=== PATIENT | male | born 1995 | race Hispanic/Latino ===

== ENCOUNTER 2017-03-26 13:56 | Emergency (ER) | payer OTHER ==
[~2017-03-26] VITALS: Ht 180.3 cm; Wt 83.5 kg
[2017-03-26 15:35] LABS: BILIRUBIN,URINE NEGATIVE (NEGATIVE); CLARITY,URINE CLEAR (CLEAR); COLOR,URINE YELLOW (YELLOW); KETONES,URINE NEGATIVE (NEGATIVE); LEUKOCYTE ESTERASE ,URINE NEGATIVE (NEGATIVE); NITRITE,URINE NEGATIVE (NEGATIVE); PROTEIN,URINE DIPSTICK NEGATIVE (NEGATIVE); URINE UROBILINOGEN 0.2 mg/dL (0.2 - 1)
[2017-03-26 16:03] LABS: EPITHELIAL CELLS,URINE RARE /LPF; MUCUS,URINE RARE (RARE)
[2017-03-26 18:08] VITALS: BP 132/82
== END 2017-03-26 18:20 | disposition home or self-care (01) ==
LOC: ER 13:56 → EDSEX 13:56 → EDBD 13:56 → ER 18:20
DX: R35.0 Frequency of micturition (principal); R30.0 Dysuria
CPT/HCPCS: 81001; 87086; 99283

== ENCOUNTER 2017-11-11 13:46 | Emergency (ER) | payer OTHER ==
[~2017-11-11] VITALS: Ht 180.3 cm; Wt 79.4 kg
[2017-11-11] MEDS ORDERED: SODIUM CHLORIDE 0.9% 1000ML 1,000 ML IV STA (13:52)
[2017-11-11] MEDS ORDERED: ONDANSETRON HCL INJ 2 MG/ML VIAL IV STA (13:52)
[2017-11-11] MEDS ORDERED: KETOROLAC TROMETHAMINE 30 MG/ML VIAL IV STA (13:52)
[2017-11-11 14:39] LABS: BASOPHILS % 0.3 % (0.0-1.0); EOSINOPHILS # (AUTO) 0.1 (0.0-0.4); EOSINOPHILS % 0.7 % (0.0-6.0); HEMATOCRIT 45.3 % (38.2-49.6); HEMOGLOBIN 16.2 g/dL (14.0-18.0); LYMPHOCYTES # (AUTO) 1.9 (1.0-3.2); LYMPHOCYTES % 19.1 % (18.0-39.1); MEAN CORPUSCULAR HGB CONC 35.8 g/dL (31-35); MEAN CORPUSCULAR VOLUME 86.8 fL (81-99); MONOCYTES # (AUTO) 0.5 (0.2-0.8); MONOCYTES % 5.3 % (4.4-11.3); NEUTROPHILS # (AUTO) 7.3 (2.1-6.9); NEUTROPHILS % 74.3 % (38.7-80.0); PLATELET COUNT 270 x10e3/uL (140-360); RED BLOOD COUNT 5.22 x10e6/uL (4.3-5.7); RED CELL DISTRIBUTION WIDTH 12.4 % (11.7-14.4)
[2017-11-11 14:41] LABS: CLARITY,URINE SL CLOUDY (CLEAR); COLOR,URINE YELLOW (YELLOW); LEUKOCYTE ESTERASE ,URINE NEGATIVE (NEGATIVE); NITRITE,URINE NEGATIVE (NEGATIVE); PROTEIN,URINE DIPSTICK NEGATIVE (NEGATIVE)
[2017-11-11 14:42] LABS: BILIRUBIN,URINE NEGATIVE (NEGATIVE); KETONES,URINE NEGATIVE (NEGATIVE); URINE UROBILINOGEN 0.2 mg/dL (0.2 - 1)
[2017-11-11 14:52] LABS: RBC,URINE 0-5 /HPF (0-5)
[2017-11-11 15:00] LABS: ALANINE AMINOTRANSFERASE 29 IU/L (0-55); ALBUMIN 4.4 g/dL (3.5-5.0); ALBUMIN/GLOBULIN RATIO 1.2 (0.8-2.0); ALKALINE PHOSPHATASE 134 IU/L (40-150); ANION GAP 15.7 mmol/L (8-16); BLOOD UREA NITROGEN 11 mg/dL (7-26); BUN/CREATININE RATIO 10 (6-25); CALCIUM 9.9 mg/dL (8.4-10.2); CARBON DIOXIDE 24 mmol/L (22-29); CHLORIDE 103 mmol/L (98-107); CREATININE, SERUM 1.09 mg/dL (0.72-1.25); EST GLOMERULAR FILTRATION RATE > 60 ML/MIN (60-); GLUCOSE 112 mg/dL (74-118); LIPASE 23 U/L (8-78); POTASSIUM 3.7 mmol/L (3.5-5.1); SODIUM 139 mmol/L (136-145)
--- NOTE | 2017-11-11 16:33 | Diagnostic Imaging Report ---
PROCEDURE: CT ABDOMEN AND PELVIS WITH CONTRAST TECHNIQUE: The abdomen and pelvis were scanned utilizing a multidetector helical scanner from the diaphragm to the lesser trochanter after the IV administration of 100 cc of Isovue 370 and the oral administration of 900 mL of Gastrografin/water. Coronal and sagittal multiplanar reformations were obtained. COMPARISON: None. INDICATIONS: abdominal pain, lower quad, rectal bleeding FINDINGS: LOWER THORAX: Normal. HEPATOBILIARY: No focal hepatic lesions. No biliary ductal dilatation. SPLEEN: No splenomegaly. PANCREAS: No focal masses or ductal dilatation. ADRENALS: No adrenal nodules. KIDNEYS/URETERS: No hydronephrosis, stones, or solid mass lesions. PELVIC ORGANS/BLADDER: Unremarkable. PERITONEUM / RETROPERITONEUM: No free air or fluid. LYMPH NODES: There is some prominence ileocecal lymph nodes in the right lower quadrant which measure up to 1.0 cm (series 2, image 42) . VESSELS: Unremarkable. GI TRACT: Unusual appearance of the right hemicolon suggests prior ileocecal resection. There is mild thickening of the neoterminal ileum with adjacent fat stranding and enlarged ileocecal lymph nodes. Otherwise no abnormal distention or wall thickening. No evidence of obstruction. The appendix is absent. BONES AND SOFT TISSUES: Unremarkable. IMPRESSION: The appearance of the right hemicolon suggests prior ileocecal resection. There is mild wall thickening of the neoterminal ileum with surrounding stranding and ileocolic lymphadenopathy. The findings suggest a nonspecific enteritis, perhaps inflammatory or infectious. Dictated by: Silvestre Mccord M.D. on 11/11/2017 at 16:39 Electronically approved by: Silvestre Mccord M.D. on 11/11/2017 at 16:39
[2017-11-11] MEDS ORDERED: FLAGYL500 MG PO (16:39)
[2017-11-11] MEDS ORDERED: CIPRO500 MG PO (16:39)
[2017-11-11 16:59] VITALS: BP 127/63
[2017-11-11] MEDS ORDERED: SODIUM CHLORIDE 0.9% 50ML 50 ML ONE (17:28)
[2017-11-11] MEDS ORDERED: IOPAMIDOL 370 MG/ML 200 ML INFUS..BTL INJ ONE (17:28)
== END 2017-11-11 17:06 | disposition home or self-care (01) ==
LOC: ER 13:46
DX: R10.84 Generalized abdominal pain (principal); R11.0 Nausea
CPT/HCPCS: 36415; 74177; 80053; 81001; 83690; 85025; 99284; J1885; J2405; J7030; Q9967

== ENCOUNTER 2018-04-07 20:28 | Emergency (ER) | payer OTHER ==
[~2018-04-07] VITALS: Ht 180.3 cm; Wt 79.4 kg
[~2018-04-07 20:28] MED LIST: CIPRO500 MG PO; FLAGYL500 MG PO
--- OUTSIDE RECORDS SUMMARY | 2018-04-07 20:31 | XMS REPORT ---
Author Author Admin, [place] Organization [facility] Address [address] [address] Phone Allergies, Adverse Reactions, Alerts Allergy Name Reaction Description Start Date Severity Status Provider No Known Allergies Jazmín Black CMA Conditions or Problems Problem Name Problem Code Onset Date Status Entry Date Provider Comment Standard Description Annotate Immunization update V15.9 Active Lisa Palencia MD Unspecified personal history presenting hazards to health Medication, terminal press operator use V58.6 Active Lisa Palencia MD Long-term (current) drug use Pre-Exposure Prophylaxis z72.52 V69.2 Active Lisa Palencia MD High-risk sexual behavior Sexual activity, high risk V69.2 Active Lisa Palencia MD High-risk sexual behavior Preventative health care V70.0 Active Dustin Verdin AUTOMOTIVE PRODUCT ENGINEER Routine general medical examination at a health care facility Medication List Medication Instructions Start Date Stop Date Generic Name NDC Status Provider Patient Instruction TRUVADA 200 MG-300 MG TABLET TAKE 1 TABLET BY MOUTH EVERY DAY EMTRICITABINE- TENOFOVIR DF [id number] Active Lisa Palencia MD Active Immunizations Vaccine Administration Date Value Standard Description hepatitis B vaccine #2 given given hepatitis B vaccine, unspecified formulation Human Papillomavirus vaccine (Gardasil) #2, (HPV #2) given human papilloma virus vaccine, quadrivalent Human Papillomavirus vaccine (Gardasil) #2, (HPV #2) Drug Name Gardasil 9 human papilloma virus vaccine, quadrivalent hepatitis B vaccine #1 given given hepatitis B vaccine, unspecified formulation Human Papilloma Virus Vaccine (Gardasil) (HPV 1) Administration Date given human papilloma virus vaccine, quadrivalent Vital Signs Date Name Value Unit Range Description height E&M 71 [in_us] Bdy height blood pressure, diastolic 76 mm[Hg] BP connolly blood pressure, systolic 144 mm[Hg] BP sys height E&M 71 [in_us] Bdy height temperature E&M 97.9 [degF] Body temperature weight E&M 173.40 [lb_av] Weight Measured blood pressure, diastolic 82 mm[Hg] BP connolly blood pressure, systolic 141 mm[Hg] BP sys height E&M 71 [in_us] Bdy height pulse rate E&M 64 /min Heart rate temperature E&M 97.8 [degF] Body temperature weight E&M 180.38 [lb_av] Weight Measured Diagnostic Results Date Name Value Unit Range Description Lab Report: HBcAb+HBsAb+HBsAg+HCVAb, CBC With Differential/Platelet, Com ... - Chemistry hepatitis B surface antigen Negative Negative Lab Report: COMPREHENSIVE METABOLIC PANEL, HIV 1/2 ANTIGEN/ANTIBODY,FOUR ... - Chemistry chloride, serum 104 mmol/L 98-110 Internal Other: Patient navigation 2 Prep start/ neg HIV rapid test - Chemistry HIV rapid test results negative Lab Report: HBcAb+HBsAb+HBsAg+HCVAb, CBC With Differential/Platelet, Com ... - Microbiology hepatitis A antibody, total Positive Negative Lab Report: COMPREHENSIVE METABOLIC PANEL, HIV 1/2 ANTIGEN/ANTIBODY,FOUR ... - Chemistry urea nitrogen, blood 17 mg/dL 7-25 Lab Report: HBcAb+HBsAb+HBsAg+HCVAb, CBC With Differential/Platelet, Com ... - Hematology mean corpuscular hemoglobin concentration, RBC 34.2 G/DL % 31.5-35.7 erythrocyte (RBC) count 5.01 X10E6/UL 10*6/mm3 4.14-5.80 Lab Report: HBcAb+HBsAb+HBsAg+HCVAb, CBC With Differential/Platelet, Com ... - Serology hepatitis C antibody, serum 0.1 0.0-0.9 Lab Report: HBcAb+HBsAb+HBsAg+HCVAb, CBC With Differential/Platelet, Com ... - Chemistry Absolute Neutrophils 7.8 X10E3/UL 10*3/uL 1.4-7.0 Lab Report: COMPREHENSIVE METABOLIC PANEL, HIV 1/2 ANTIGEN/ANTIBODY,FOUR ... - Chemistry urea nitrogen/creatinine ratio, serum NOT APPLICABLE (calc) 6-22 Lab Report: HBcAb+HBsAb+HBsAg+HCVAb, CBC With Differential/Platelet, Com ... - Hematology mean corpuscular volume, RBC 91 fL 79-97 monocytes as percent of blood leukocytes 5 % Not Estab. Lab Report: COMPREHENSIVE METABOLIC PANEL, HIV 1/2 ANTIGEN/ANTIBODY,FOUR ... - Chemistry albumin/globulin ratio, serum 2.0 (calc) 1.0-2.5 creatinine, serum 1.01 mg/dL 0.60-1.35 bilirubin, serum, total 0.5 mg/dL 0.2-1.2 Lab Report: HBcAb+HBsAb+HBsAg+HCVAb, CBC With Differential/Platelet, Com ... - Hematology Eosinophil Absolute Count 0.4 X10E3/UL 10*3/uL 0.0-0.4 Lab Report: CHLAMYDIA/N. GONORRHOEAE RNA, TMA, UROGENITAL - Lab chlamydia DNA probe NOT DETECTED NOT DETECTED Lab Report: COMPREHENSIVE METABOLIC PANEL, HIV 1/2 ANTIGEN/ANTIBODY,FOUR ... - Chemistry aspartate aminotransferase (SGOT), serum 36 U/L 10-40 Lab Report: HBcAb+HBsAb+HBsAg+HCVAb, CBC With Differential/Platelet, Com ... - Hematology red blood cell distribution width 13.6 % 12.3-15.4 Lab Report: COMPREHENSIVE METABOLIC PANEL, HIV 1/2 ANTIGEN/ANTIBODY,FOUR ... - Chemistry globulins, serum, total 2.2 G/DL (CALC) g/dL 1.9-3.7 Lab Report: HBcAb+HBsAb+HBsAg+HCVAb, CBC With Differential/Platelet, Com ... - Hematology leukocyte count, blood 10.9 X10E3/UL 10*3/mm3 3.4-10.8 Lab Report: COMPREHENSIVE METABOLIC PANEL, HIV 1/2 ANTIGEN/ANTIBODY,FOUR ... - Chemistry potassium, serum 4.4 mmol/L 3.5-5.3 albumin, serum 4.5 g/dL 3.6-5.1 Lab Report: Ct/GC MATT, Rectal, Ct/GC MATT, Pharyngeal - Microbiology Neisseria gonorrhoeae, throat culture Negative Negative Lab Report: HBcAb+HBsAb+HBsAg+HCVAb, CBC With Differential/Platelet, Com ... - Chemistry immature granulocytes, percentage of total cells, blood 1 % Not Estab. Lab Report: HBcAb+HBsAb+HBsAg+HCVAb, CBC With Differential/Platelet, Com ... - Hematology lymphocyte count, blood, automated 2.1 X10E3/UL 10*3/mm3 0.7-3.1 Lab Report: CHLAMYDIA/N. GONORRHOEAE RNA, TMA, UROGENITAL - Microbiology Neisseria gonorrhoeae DNA probe NOT DETECTED NOT DETECTED Lab Report: HBcAb+HBsAb+HBsAg+HCVAb, CBC With Differential/Platelet, Com ... - Hematology hematocrit, blood 45.6 % 37.5-51.0 Lab Report: COMPREHENSIVE METABOLIC PANEL, HIV 1/2 ANTIGEN/ANTIBODY,FOUR ... - Chemistry sodium, serum 141 mmol/L 135-146 Lab Report: HBcAb+HBsAb+HBsAg+HCVAb, CBC With Differential/Platelet, Com ... - Hematology neutrophils as percent of blood leukocytes 72 % Not Estab. basophils as percent of blood leukocytes 0 % Not Estab. Lab Report: HIV 1/2 ANTIGEN/ANTIBODY,FOURTH GENERATION W/RFL, RPR (DX) W ... - Serology rapid plasma reagin antibody, serum NON-REACTIVE NON-REACTIVE Lab Report: COMPREHENSIVE METABOLIC PANEL, HIV 1/2 ANTIGEN/ANTIBODY,FOUR ... - Chemistry carbon dioxide, venous blood 26 mmol/L 20-32 Lab Report: HBcAb+HBsAb+HBsAg+HCVAb, CBC With Differential/Platelet, Com ... - Serology hepatitis B core antibody, total Negative Negative Lab Report: COMPREHENSIVE METABOLIC PANEL, HIV 1/2 ANTIGEN/ANTIBODY,FOUR ... - Chemistry calcium, serum 9.4 mg/dL 8.6-10.3 alanine aminotransferase (SGPT), serum 27 U/L 9-46 Lab Report: HBcAb+HBsAb+HBsAg+HCVAb, CBC With Differential/Platelet, Com ... - Hematology mean corpuscular hemoglobin, RBC 31.1 pg 26.6-33.0 Lab Report: COMPREHENSIVE METABOLIC PANEL, HIV 1/2 ANTIGEN/ANTIBODY,FOUR ... - Chemistry protein, total, serum 6.7 g/dL 6.1-8.1 alkaline phosphatase, serum 108 U/L 40-115 Lab Report: HBcAb+HBsAb+HBsAg+HCVAb, CBC With Differential/Platelet, Com ... - Hematology hemoglobin, blood 15.6 g/dL 13.0-17.7 lymphocytes as percent of blood leukocytes 19 % Not Estab. Lab Report: COMPREHENSIVE METABOLIC PANEL, HIV 1/2 ANTIGEN/ANTIBODY,FOUR ... - Genetics/fertility eGFR if 122 mL/min/1.73m2 > OR=60 Lab Report: HBcAb+HBsAb+HBsAg+HCVAb, CBC With Differential/Platelet, Com ... - Hematology basophil count, absolute 0.0 x10E3/uL 0.0-0.2 Lab Report: Ct/GC MATT, Rectal, Ct/GC MATT, Pharyngeal - Basic GC Rectum Negative Negative Lab Report: HBcAb+HBsAb+HBsAg+HCVAb, CBC With Differential/Platelet, Com ... - Chemistry globulin, serum 2.2 1.5-4.5 Lab Report: COMPREHENSIVE METABOLIC PANEL, HIV 1/2 ANTIGEN/ANTIBODY,FOUR ... - Chemistry Estimated Glomerular Filtration Rate (calc) 105 mL/min/1.73m2 > OR=60 Lab Report: HBcAb+HBsAb+HBsAg+HCVAb, CBC With Differential/Platelet, Com ... - Serology hepatitis B surface antibody Non Reactive Lab Report: HBcAb+HBsAb+HBsAg+HCVAb, CBC With Differential/Platelet, Com ... - Hematology eosinophils as percent of blood leukocytes 3 % Not Estab. Lab Report: COMPREHENSIVE METABOLIC PANEL, HIV 1/2 ANTIGEN/ANTIBODY,FOUR ... - Chemistry blood glucose, random 86 mg/dL 65-99 Lab Report: HBcAb+HBsAb+HBsAg+HCVAb, CBC With Differential/Platelet, Com ... 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 Exp Problem - 18115 Lisa Palencia MD CPT-98164 [facility] 12:45:42 CDT Est Patient Detailed - 97689 Lisa Palencia MD CPT-10204 [facility] 10:48:26 CDT New Patient Detailed - 24154 Lisa Palencia MD CPT-32966 [facility] Procedures Code Procedure Name Date Entry Date Standard Description CPT-09952 Gardasil (HPV) 9 - valent 12:45:47 CDT CPT-83962 Hepatitis B - Adult 12:45:47 CDT CPT-FC001 Financial Counseling/Eligibility Assistance 10:28:02 CDT CPT-09503 Hepatitis B - Adult 10:48:31 CDT CPT-82327 Gardasil (HPV) 9 - valent 10:48:31 CDT CPT-HE001 Health Education/Supportive Counseling 11:32:24 CDT CPT-HE001 Health Education/Supportive Counseling 09:36:33 CDT
--- OUTSIDE RECORDS SUMMARY | 2018-04-07 20:31 | XMS REPORT ---
Author [facility] Address Unknown Phone Unavailable Care Team Providers Care Press Set Up Person Name Role Phone Anisha ANDERSON Unavailable Unavailable Problems This patient has no known problems. Allergies, Adverse Reactions, Alerts This patient has no known allergies or adverse reactions. Medications This patient has no known medications. Results Test Description Test Time Test Comments Text Results Atomic Results Result Comments CT ABDOMEN/PELVIS W 2017-11-11 16:39:00 [place] [address] Patient Name: IGOR RICO MR #: [id number] : 1995 Age/Sex: 22/M Req #: [id number] [facility] Physician: Ordered by: AGGIE ANDERSON MD Report #: [id number] Location: ER Room/Bed: Procedure: [id number] CT/CT ABDOMEN/PELVIS W Exam Date: 11/11/17 Exam Time: 1520 REPORT STATUS: Signed PROCEDURE: CT ABDOMEN AND PELVIS WITH CONTRAST TECHNIQUE: The abdomen and pelvis were scanned utilizing a multidetector helical scanner from the diaphragm to the lesser trochanter after the IV administration of 100 cc of Isovue 370 and the oral administration of 900 mL of Gastrografin/water. Coronal and sagittal multiplanar reformations were obtained. COMPARISON: None. INDICATIONS: abdominal pain, lower quad, rectal bleeding FINDINGS: LOWER THORAX: Normal. HEPATOBILIARY: No focal hepatic lesions. No biliary ductal dilatation. SPLEEN: No splenomegaly. PANCREAS: No focal masses or ductal dilatation. ADRENALS: No adrenal nodules. KIDNEYS/URETERS: No hydronephrosis, stones, or solid mass lesions. PELVIC ORGANS/BLADDER: Unremarkable. PERITONEUM / RETROPERI TONEUM: No free air or fluid. LYMPH NODES: There is some prominence ileocecal lymph nodes in the right lower quadrant which measure up to 1.0 cm (series 2, image 42) . VESSELS: Unremarkable. GI TRACT: Unusual appearance of the right hemicolon suggests prior ileocecal resection. There is mild thickening of the neoterminal ileum with adjacent fat stranding and enlarged ileocecal lymph nodes. Otherwise no abnormal distention or wall thickening. No evidence of obstruction. The appendix is absent. BONES AND SOFT TISSUES: Unremarkable. IMPRESSION: The appearance of the right hemicolon suggests prior ileocecal resection. There is mild wall thickening of the neoterminal ileum with surrounding stranding and ileocolic lymphadenopathy. The findings suggest a nonspecific enteritis, perhaps inflammatory or infectious. Dictated by: Marlo Rust M.D. on 11/11/2017 at 16:39 Electronically approved by: Marlo Rust M.D. on 11/11/2017 at 16:39 Dictated By: MARLO RUST MD [id number] Transcribed By: MICHELET on 11/11/17 1639 COPY TO: AGGIE ANDERSON MD
[2018-04-07 21:29] LABS: CLARITY,URINE CLEAR (CLEAR); COLOR,URINE YELLOW (YELLOW); LEUKOCYTE ESTERASE ,URINE NEGATIVE (NEGATIVE); NITRITE,URINE NEGATIVE (NEGATIVE); PROTEIN,URINE DIPSTICK NEGATIVE (NEGATIVE)
[2018-04-07 21:30] LABS: BILIRUBIN,URINE NEGATIVE (NEGATIVE); KETONES,URINE NEGATIVE (NEGATIVE); URINE UROBILINOGEN 0.2 mg/dL (0.2 - 1)
[2018-04-07 21:48] LABS: BACTERIA,URINE FEW /HPF; EPITHELIAL CELLS,URINE FEW /LPF; RBC,URINE 0-5 /HPF (0-5)
--- NOTE | 2018-04-07 23:24 | Diagnostic Imaging Report ---
Exam: US TESTICULAR DOPPLER LTD Clinical History: ^LEFT TESTICULAR PAIN, EVAL FOR TORSION, H/O TORSION ^[id number] ^2149 ^Y Technique: Sonographic evaluation of the testicles using grayscale and color Doppler. Findings. Both testes are normal in echogenicity and size without intratesticular mass. Arterial and venous flow is documented to both testicles. The right testes measures 4.8 x 2 x 3 cm and the left testes measures 5 x 2.1 x 3.2 cm. Negative for hydrocele or varicocele. Bilateral epididymal head cysts or spermatoceles, 6 x 5 x 8 mm on the right and 8 x 7 x 10 mm and 5 x 4 x 6 mm on the left. Otherwise both epididymides are normal in appearance. Impression: No evidence of torsion or epididymoorchitis. Signed by: Dr Frieda Hankins MD on 04/07/2018 11:21 PM
== END 2018-04-08 00:44 | disposition home or self-care (01) ==
LOC: ER 20:28
DX: N50.812 Left testicular pain (principal); N50.89 Other specified disorders of the male genital organs
CPT/HCPCS: 76870; 81001; 93976; 99283

== ENCOUNTER → 2019-12-07 | Outpatient (CLI) | payer OTHER | LOC: LAB 08:30 | PROVIDERS: ATTEND Urology | DX: E29.1 Testicular hypofunction (principal) | CPT/HCPCS: 84402 ==

== ENCOUNTER 2022-06-29 17:49 | Emergency (ER) | payer OTHER ==
[~2022-06-29] VITALS: Ht 182.9 cm; Wt 89.8 kg
[2022-06-29] MEDS ORDERED: ANTIVERT25 M1 PO (20:49)
[2022-06-29 21:04] VITALS: BP 123/60
== END 2022-06-29 21:05 | disposition home or self-care (01) ==
LOC: ER 18:06
DX: R42 Dizziness and giddiness (principal); R47.81 Slurred speech; Z98.0 Intestinal bypass and anastomosis status
CPT/HCPCS: 70450; 99284

== ENCOUNTER → 2022-08-22 | Outpatient (CLI) | payer OTHER ==
[~2022-08-22] MED LIST changes: +ANTIVERT25 M1 PO
== END ==
LOC: MRI 07:21
PROVIDERS: ATTEND Internal Medicine
DX: R26.9 Unspecified abnormalities of gait and mobility (principal)
CPT/HCPCS: 70551